=== PATIENT | female | born 1990 | race Caucasian/White ===

== ENCOUNTER → 2023-12-29 09:31 | Outpatient (REF) | payer BC, SELFPAY | LOC: PNTC 09:31 | PROVIDERS: ATTENDING PHYSICIAN Obstetrics & Gynecology | DX: O99.210 Obesity complicating pregnancy, unspecified trimester (principal) | CPT/HCPCS: 76811 ==

== ENCOUNTER → 2024-01-26 09:43 | Outpatient (REF) | payer BC, SELFPAY | LOC: PNTC 09:43 | PROVIDERS: ATTENDING PHYSICIAN Obstetrics & Gynecology | DX: O99.210 Obesity complicating pregnancy, unspecified trimester (principal) | CPT/HCPCS: 76816 ==

== ENCOUNTER → 2024-02-29 10:56 | Outpatient (REF) | payer BC, SELFPAY | LOC: PNTC 10:56 | PROVIDERS: ATTENDING PHYSICIAN Obstetrics & Gynecology | DX: O99.210 Obesity complicating pregnancy, unspecified trimester (principal) | CPT/HCPCS: 36415; 76816; 86850; 86900; 86901; J2790 ==

== ENCOUNTER → 2024-03-28 11:02 | Outpatient (REF) | payer BC, SELFPAY | LOC: PNTC 11:02 | PROVIDERS: ATTENDING PHYSICIAN Obstetrics & Gynecology | DX: O99.210 Obesity complicating pregnancy, unspecified trimester (principal) | CPT/HCPCS: 76816 ==

== ENCOUNTER → 2024-04-19 08:16 | Outpatient (REF) | payer BC, SELFPAY | LOC: PNTC 08:16 | PROVIDERS: ATTENDING PHYSICIAN Obstetrics & Gynecology | DX: O99.210 Obesity complicating pregnancy, unspecified trimester (principal) | CPT/HCPCS: 76815 ==

== ENCOUNTER → 2024-04-26 08:22 | Outpatient (REF) | payer BC, SELFPAY | LOC: PNTC 08:22 | PROVIDERS: ATTENDING PHYSICIAN Obstetrics & Gynecology | DX: O99.210 Obesity complicating pregnancy, unspecified trimester (principal) | CPT/HCPCS: 59025; 76816 ==

== ENCOUNTER → 2024-05-03 09:20 | Outpatient (REF) | payer BC, SELFPAY | LOC: PNTC 09:20 | PROVIDERS: ATTENDING PHYSICIAN Obstetrics & Gynecology | DX: O99.210 Obesity complicating pregnancy, unspecified trimester (principal) | CPT/HCPCS: 59025; 76815 ==

== ENCOUNTER 2024-05-11 19:38 | Inpatient (IN) | payer BC, SELFPAY ==
[2024-05-11 19:43] VITALS: BP 139/73; BMI 46.1
[2024-05-11] MEDS: LR 1000 IV (20:30)
[2024-05-11 20:53] LABS: % Basophils 0.1 % (0-2); % Eosinophils 0.9 % (0-6); % Immature Granulocytes 0.3 % (0-0.5); % Lymphocytes 18.3 % (20.5-51.1); % Monocytes 6.1 % (1.7-9.3); % Neutrophils 74.3 % (42.2-75.2); Absolute Eosinophils 0.1 10^3/uL (0-0.7); Absolute Lymphocytes 1.6 10^3/uL (1.2-3.4); Absolute Monocytes 0.5 10^3/uL (0.1-0.6); Absolute Neutrophils 6.6 10^3/uL (1.4-6.5); Hematocrit 29.7 % (37.0-47.0); Hemoglobin 10.2 g/dL (12.0-16.0); Mean Corp Hgb Conc. 34.3 g/dL (33.0-37.0); Mean Corpuscular Hgb 30.2 pg (27.0-31.0); Mean Corpuscular Volume 87.9 fL (81.0-99.0); Mean Platelet Volume 10.5 fL (7.4-10.4); Nucleated Red Blood Cells % 0 %; Platelet Count 223 10^3/uL (130-400); Red Blood Cell Count 3.38 10^6/uL (4.20-5.40); Red Cell Dist. Width 14.7 % (11.5-14.5); White Blood Cell Count 8.9 10^3/uL (4.8-10.8)
[2024-05-11] MEDS: CYTOTEC 25 MICROGRAM VAG (21:39)
[2024-05-12] MEDS: CYTOTEC 50 MICROGRAM PO ×2 (02:15→07:02)
[2024-05-12] MEDS: MORPHINE SULFATE 2 MG IV (03:48)
[2024-05-12] MEDS: PITOCIN 30 UNITS/NSS 500 ML IV ×2 (11:07→22:08)
[2024-05-12] MEDS: FENTANYL/BUPIVACAINE 100 EPIDURAL ×2 (12:41→20:18)
[2024-05-12] MEDS: SUBLIMAZE 100 MCG EPIDURAL (12:41)
[2024-05-12] MEDS: LR 1000 IV (16:01)
[2024-05-12] MEDS: CYTOTEC PO (23:37)
[2024-05-13] MEDS: TYLENOL 650 MG PO ×4 (02:00→22:24)
[2024-05-13 05:40] LABS: Hematocrit 27.7 % (37.0-47.0); Hemoglobin 9.6 g/dL (12.0-16.0)
[2024-05-13] MEDS: PRENATAL PLUS 1 TABLET PO (09:46)
[2024-05-13 11:12] LABS: Syphilis/T. pallidum Ab Reflex Negative (Negative)
[2024-05-14] MEDS: TYLENOL 650 MG PO (02:51)
[2024-05-14] MEDS: PRENATAL PLUS 1 TABLET PO (08:07)
[2024-05-14] MEDS: MOTRIN 600 MG PO (08:22)
== END 2024-05-14 11:52 | disposition home or self-care (01) | DRG 807 ==
LOC: LDRP 19:38
PROVIDERS: Obstetrics & Gynecology; ADMITTING PHYSICIAN Obstetrics & Gynecology
PROC: 0HQ9XZZ Repair Perineum Skin, External Approach (ICD-10-PCS; 2024-05-11)
PROC: 10E0XZZ Delivery of Products of Conception, External Approach (ICD-10-PCS; 2024-05-12)
DX: O70.0 First degree perineal laceration during delivery (principal); Z37.0 Single live birth; O69.81X0 Labor and delivery complicated by cord around neck, without compression, not applicable or unspecified; O66.0 Obstructed labor due to shoulder dystocia; Z3A.39 39 weeks gestation of pregnancy
CPT/HCPCS: 88307; 85014; 85018; 85025; 86780; 86850; 86900; 86901